=== PATIENT | male | born 1985 | race Caucasian/White ===

== ENCOUNTER 2020-03-24 16:43 | Emergency (ER) | payer SELFPAY ==
[~2020-03-24] VITALS: Ht 172.7 cm; Wt 99.8 kg
[2020-03-24] MEDS ORDERED: QUET200 PO (17:35)
[2020-03-24] MEDS ORDERED: Lamictal25 MG PO (17:35)
[2020-03-24] MEDS ORDERED: BUPR100ER PO (17:35)
== END 2020-03-24 18:19 | disposition home or self-care (01) ==
LOC: ER 16:43
DX: Z76.0 Encounter for issue of repeat prescription (principal); Z88.0 Allergy status to penicillin
CPT/HCPCS: 99282